=== PATIENT | female | born 1985 | race Caucasian/White ===

== ENCOUNTER 2020-03-23 16:28 | Emergency (ER) | payer OTHER ==
[~2020-03-23] VITALS: Ht 165.1 cm; Wt 83.9 kg
[2020-03-23 16:28] VITALS: BP_SYST 166
[2020-03-23] MEDS: IBUPROFEN 400 MG TABLET PO ONE (17:45)
[2020-03-23 19:02] VITALS: BP_SYST 151
== END 2020-03-23 19:03 | disposition home or self-care (01) ==
LOC: EDSEX 16:28 → SED 16:28
DX: M25.562 Pain in left knee (principal); M25.511 Pain in right shoulder; V49.49XA Driver injured in collision with other motor vehicles in traffic accident, initial encounter; Y93.89 Activity, other specified; Y92.413 State road as the place of occurrence of the external cause; Y99.8 Other external cause status
CPT/HCPCS: 73030; 73564; 81025; 99284